=== PATIENT | female | born 1945 | race Caucasian/White ===

== ENCOUNTER → 2022-02-24 09:18 | Outpatient (BNVA) | payer MEDICARE, OTHER, SELFPAY | PROVIDERS: Family Provider Nurse Practitioner; Visit Provider Podiatrist Foot & Ankle Surgery | DX: L84 Corns and callosities (principal) | CPT/HCPCS: 99203 ==

== ENCOUNTER → 2022-04-07 08:58 | Outpatient (BNVA) | payer MEDICARE, OTHER, SELFPAY | PROVIDERS: Family Provider Nurse Practitioner; Visit Provider Podiatrist Foot & Ankle Surgery | DX: M79.671 Pain in right foot (principal); L84 Corns and callosities | CPT/HCPCS: 99213 ==

== ENCOUNTER → 2022-05-26 10:04 | Outpatient (BNVA) | payer MEDICARE, OTHER, SELFPAY | PROVIDERS: Family Provider Nurse Practitioner; Visit Provider Podiatrist Foot & Ankle Surgery | DX: M79.671 Pain in right foot (principal); L84 Corns and callosities | CPT/HCPCS: 99213 ==

== ENCOUNTER 2024-02-21 21:23 | Observation (INO) | payer MEDICARE, OTHER, SELFPAY ==
[2024-02-21 21:24] VITALS: BP 205/85; PULSE 90; RESP 16; TEMP 36.7; O2SAT 97; BMI 29.7
[2024-02-21 21:36] VITALS: BP 217/75
--- NOTE | 2024-02-21 21:36 | CTR_ITS ---
PROCEDURE INFORMATION: Exam: CT Head Without Contrast Exam date and time: 02/21/2024 9:40 PM Age: 79 years old Clinical indication: Altered mental status/memory loss and speech disturbance and visual disturbance; Additional info: Possible stroke TECHNIQUE: Imaging protocol: Computed tomography of the head without contrast. Radiation optimization: All CT scans at this facility use at least one of these dose optimization techniques: automated exposure control; mA and/or kV adjustment per patient size (includes targeted exams where dose is matched to clinical indication); or iterative reconstruction. COMPARISON: No relevant prior studies available. RADIATION DOSE METRICS: Total DLP (mGy-cm): 1038.14 FINDINGS: Brain: Normal. No hemorrhage. Unremarkable white matter. No mass effect. Cerebral ventricles: No ventriculomegaly. Paranasal sinuses: Visualized sinuses are unremarkable. No fluid levels. Mastoid air cells: Visualized mastoid air cells are well aerated. Bones: Unremarkable. No acute fracture. Soft tissues: Unremarkable. CT/CT head wo con* [id number] IMPRESSION: No acute intracranial abnormality.
--- NOTE | 2024-02-21 21:37 | ECG_ITS ---
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 Measurements Intervals [place] Rate: 77 P: 77 PA: 178 QRS: -63 QRSD: 94 T: 77 QT: 375 QTc: 425 Interpretive Statements SINUS RHYTHM LEFT AXIS DEVIATION [QRS AXIS < -30] PATTERN CONSISTENT WITH PULMONARY DISEASE INCOMPLETE RIGHT BUNDLE BRANCH BLOCK [90+ ms QRS DURATION, TERMINAL R IN V1/V2, 40+ ms S IN I/aVL/V4/V5/V6] SEPTAL MYOCARDIAL INFARCTION , OF INDETERMINATE AGE [40+ ms Q WAVE IN V1/V2] No previous ECG available for comparison Electronically Signed On 02-22-2024 16:57:43 RO[address] BUILDER by Armida Platt M.D. [email or web address]
--- NOTE | 2024-02-21 21:37 | CTR_ITS ---
PROCEDURE INFORMATION: Exam: CTA Head With Contrast, Arteriography Exam date and time: 02/21/2024 9:46 PM Age: 79 years old Clinical indication: Speech disturbance and visual disturbance; Additional info: Possible stroke TECHNIQUE: Imaging protocol: Computed tomographic angiography of the head with contrast. Exam focused on the arteries. 3D rendering (Not supervised by radiologist): MIP and/or 3D reconstructed images were created by the technologist. Radiation optimization: All CT scans at this facility use at least one of these dose optimization techniques: automated exposure control; mA and/or kV adjustment per patient size (includes targeted exams where dose is matched to clinical indication); or iterative reconstruction. Contrast material: OMNI 350; Contrast volume: 100 ml; Contrast route: INTRAVENOUS (IV); COMPARISON: CT head wo con* [id number] 02/21/2024 9:40 PM RADIATION DOSE METRICS: Total DLP (mGy-cm): 467.38 FINDINGS: Grossly limited examination due to artifact. The proximal ychsgi-ps-Axymrg is grossly intact. There is nodular contour of the more distal branches of the edfivl-tr-Phcksc which may be due to artifact from suboptimal bolus timing. ANTERIOR CIRCULATION: Right internal carotid artery: Grossly limited examination due to artifact. However it is grossly patent. Right middle cerebral artery: Grossly limited examination due to artifact. However it is grossly patent. Right anterior cerebral artery: Grossly limited examination due to artifact. However it is grossly patent. Left internal carotid artery: Grossly limited examination due to artifact. However it is grossly patent. Left middle cerebral artery: Grossly limited examination due to artifact. However it is grossly patent. Left anterior cerebral artery: Grossly limited examination due to artifact. However it is grossly patent. POSTERIOR CIRCULATION: Right vertebral artery: No occlusion or significant stenosis. No aneurysm. Left vertebral artery: No occlusion or significant stenosis. No aneurysm. Basilar artery: No occlusion or significant stenosis. No aneurysm. Right posterior cerebral artery: Grossly limited examination due to artifact. Left posterior cerebral artery: Grossly limited examination due to artifact. Please see same-day noncontrast CT head examination. PROCEDURE INFORMATION: Exam: CTA Neck With Contrast Exam date and time: 02/21/2024 9:46 PM Age: 79 years old Clinical indication: Speech disturbance and visual disturbance; Additional info: Possible stroke TECHNIQUE: Imaging protocol: Computed tomographic angiography of the neck with contrast. Exam focused on the cervical segments of the vasculature. 3D rendering (Not supervised by radiologist): MIP and/or 3D reconstructed images were created by the technologist. Radiation optimization: All CT scans at this facility use at least one of these dose optimization techniques: automated exposure control; mA and/or kV adjustment per patient size (includes targeted exams where dose is matched to clinical indication); or iterative reconstruction. Contrast material: OMNI 350; Contrast volume: 100 ml; Contrast route: INTRAVENOUS (IV); COMPARISON: CT head wo con* [id number] 02/21/2024 9:40 PM RADIATION DOSE METRICS: Total DLP (mGy-cm): 467.38 FINDINGS: Right common carotid artery: No stenosis. No dissection or occlusion. Right internal carotid artery: No stenosis of the extracranial segment. No dissection or occlusion. Right external carotid artery: No occlusion or stenosis of the origin. Left common carotid artery: No stenosis. No dissection or occlusion. Left internal carotid artery: No stenosis of the extracranial segment. No dissection or occlusion. Left external carotid artery: No occlusion or stenosis of the origin. Right vertebral artery: No stenosis. No dissection or occlusion. Left vertebral artery: No stenosis. No dissection or occlusion. Soft tissues: Normal. No significant soft tissue swelling. Bones/joints: No acute fracture. CT/CT angio headneck* [id number] IMPRESSION: Grossly limited examination due to suboptimal bolus timing artifact. The uwusso-kk-Rwosmy proximally is patent. Nodular contour of the more distal wffybd-xn-Buoezz branches which may be due to suboptimal bolus timing artifact. A follow-up examination with brain MRI can be better utilized to assess for acute ischemia. IMPRESSION: No stenosis or occlusion. REFERENCES: NASCET CRITERIA. The degree of stenosis in the cervical segment of the internal carotid artery is based on NASCET criteria. Normal is no stenosis. Mild is less than 50% stenosis. Moderate is 50-69% stenosis. Severe is 70% to 99% stenosis. Total occlusion is no detectable patent lumen.
[2024-02-21] MEDS: iohexol 350 mg/mL 500 mL Btl (per mL) IV (21:51)
[2024-02-21 21:54] LABS: Glucose Point of Care 114 mg/dL (70-110)
[2024-02-21 21:58] LABS: Basophils % 0.4 %; Eosinophils # 0.1 10^3/uL (0.0-0.8); Hematocrit 39.2 % (36-47); Lymphocytes # 2.8 10^3/uL (0.8-4.8); Lymphocytes % 39.2 %; Mean Corpuscular HGB Conc 33.2 g/dL (30-55); Mean Corpuscular Hemoglobin 31.2 pg (27-33); Mean Platelet Volume 8.1 fL (7.4-10.4); Monocytes # 0.8 10^3/uL (0.2-0.9); Monocytes % 11.1 %; Neutrophils # 3.36 10^3/uL (1.8-7.7); Nucleated Red Blood Cells % 0 %; Platelet Count 238 10^3/cmm (157-399); Red Blood Count 4.17 10^6/uL (3.85-5.65); Red Cell Distribution Width 12.4 % (12.1-15.1); White Blood Count 7.14 10^3/uL (3.29-11.43)
[2024-02-21 22:03] VITALS: PULSE 75; RESP 17; O2SAT 98
[2024-02-21 22:10] LABS: INR 0.96 (0.8-1.2)
[2024-02-21 22:11] LABS: Partial Thromboplastin Time 30.7 SECONDS (23.9-36.7)
--- NOTE | 2024-02-21 22:15 | ED_ITS ---
HPI - Neuro Symptoms/Deficit 2 General: Chief Complaint: Neuro Symptoms/Deficit Stated Complaint: losing eye sight right side confused Time Seen by Provider: 02/21/24 21:33 History of Present Illness: 79-year-old female who presents emergenc y room with neurologic symptoms. She has a history of hypertension and hyperlipidemia. She states that about an hour prior to arrival she was on her phone and could not see out of her right eye suddenly. She had a headache. Then she was unable to answer questions. She said she was very confused and could not remember anything. Symptoms lasted for probably 30 minutes. They resolved while they were driving here. They had about a 30-minute drive. Currently she has no symptoms. No focal motor deficits. No altered mental status. No slurred speech. No facial droop. She has had no fevers. No chest pain. No abdominal pain. No nausea or vomiting. Related Data Home Medications Medication Instructions Recorded Confirmed atorvastatin 20 mg tablet 20 mg PO DAILY 02/24/22 05/26/22 clobetasol 0.05 % topical cream 1 applic topical DAILY 02/24/22 05/26/22 fluticasone propionate 50 1 spray intranasal BID 02/24/22 05/26/22 mcg/actuation nasal spray,suspension levothyroxine 88 mcg tablet 88 mcg PO DAILY 02/24/22 05/26/22 (Synthroid) losartan 50 mg tablet 50 mg PO DAILY 02/24/22 05/26/22 metronidazole 0.75 % topical cream 1 applic topical DAILY 02/24/22 05/26/22 (MetroCream) omeprazole 20 mg capsule,delayed 20 mg PO DAILY 02/24/22 05/26/22 release valacyclovir 1 gram tablet 1,000 mg PO DAILY 02/24/22 05/26/22 Allergies Allergy/AdvReac Type Severity Reaction Status Date / Time acetaminophen [From Percocet] Allergy ADR-Nausea Verified 05/26/22 10:07 gabapentin Allergy ADR-Nausea Verified 05/26/22 10:07 hydrocodone Allergy ADR-Nausea Verified 05/26/22 10:07 oxycodone [From Percocet] Allergy ADR-Nausea Verified 05/26/22 10:07 tramadol Allergy ADR-Nausea Verified 05/26/22 10:07 zolpidem [From Ambien] Allergy ADR-Halluci Verified 05/26/22 10:07 asif Review of Systems 2 Narrative: Constitutional symptoms: Negative except as documented in HPI. Skin symptoms: Negative except as documented in HPI. Eye symptoms: Negative except as documented in HPI. ENMT symptoms: Negative except as documented in HPI. Respiratory symptoms: Negative except as documented in HPI. Cardiovascular symptoms: Negative except as documented in HPI. Gastrointestinal symptoms: Negative except as documented in HPI. Genitourinary symptoms: Negative except as documented in HPI. Musculoskeletal symptoms: Negative except as documented in HPI. Neurologic symptoms: Negative except as documented in HPI. Psychiatric symptoms: Negative except as documented in HPI. Endocrine symptoms: Negative except as documented in HPI. [facility] ED 2 PFSH: Medical History (Updated 02/21/24 @ 23:10 by Zoe Fuentes MD) GERD (gastroesophageal reflux disease) Hypertension Hypothyroid Corns and callosities Physical Exam 2 Narrative: EXAM NARRATIVE: General: Alert, no acute distress. Skin: Warm, dry. Head: Normocephalic, atraumatic. Neck: Supple, trachea midline. Eye: Extraocular movements are intact. Ears, nose, mouth and throat: mucosa moist. Cardiovascular: Regular, Normal peripheral perfusion. Respiratory: Lungs are clear to auscultation, respirations are non-labored, breath sounds are equal, Symmetrical chest wall expansion. Gastrointestinal: Soft, Nontender, Non distended Musculoskeletal: Normal ROM, no deformity. Neurological: Alert and oriented, No focal neurological deficit observed. Psychiatric: Cooperative, appropriate mood & affect. Course 2 Vital Signs: Vital signs: Vital Signs Temperature 98.1 F 02/21/24 21:24 Pulse Rate 79 02/21/24 22:33 Respiratory Rate 20 H 02/21/24 22:33 Blood Pressure 146/121 02/21/24 22:33 Pulse Oximetry 97 02/21/24 22:33 Oxygen Delivery Me thod Room Air 02/21/24 21:24 MDM - Neuro Symptoms/Deficit Medical Decision Making Medical decision making: Differential diagnosis for patient with focal neurologic deficit(s) includes but not limited to and based on the above HPI, review of systems and physical exam: ischemic stroke, hemorrhagic stroke and embolic stroke secondary to atrial fibrillation), TIA, Romero's palsey, metabolic encephalopathy with previous stroke. Orders placed to evaluate differential diagnosis based on the above differential, HPI and physical exam NIH Stroke Scale/Score (NIHSS) from [employer] on 02/21/2024 All calculations should be rechecked by clinician prior to use RESULT SUMMARY: 0 points NIH Stroke Scale INPUTS: 1A: Level of consciousness ?> 0 = Alert; keenly responsive 1B: Ask month and age ?> 0 = Both questions right 1C: 'Blink eyes' & 'squeeze hands' ?> 0 = Performs both tasks 2: Horizontal extraocular movements ?> 0 = Normal 3: Visual ivory ?> 0 = No visual loss 4: Facial palsy ?> 0 = Normal symmetry 5A: Left arm motor drift ?> 0 = No drift for 10 seconds 5B: Right arm motor drift ?> 0 = No drift for 10 seconds 6A: Left leg motor drift ?> 0 = No drift for 5 seconds 6B: Right leg motor drift ?> 0 = No drift for 5 seconds 7: Limb Ataxia ?> 0 = No ataxia 8: Sensation ?> 0 = Normal; no sensory loss 9: Language/aphasia ?> 0 = Normal; no aphasia 10: Dysarthria ?> 0 = Normal 11: Extinction/inattention ?> 0 = No abnormality Consultation: I spoke to Dr. Pérez who is on-call for neurology. He agrees that TNKase is not needed in this instance. Symptoms have resolved. He recommends aspirin and possibly Plavix except for given her age possibly not. Blood pressure control. Admission overnight with cardiac monitoring and consider an echocardiogram. CT head: No acute intracranial process. no intracranial hemorrhage, no evidence of infarct. no evidence of acute fracture.This was reviewed and interpreted by myself the ER physician. CTA of the head and neck: No obvious stenosis or occlusions are identified. No mass. This was reviewed and interpreted by myself the emergency room physician. I also reviewed the radiology report. Lab Review: Laboratory results were reviewed and interpreted by myself the emergency room physician. No leukocytosis. No anemia. No renal failure. Urinalysis is negative for infection. Coags are normal. I reviewed the patient's medical record. Reexamination: Patient remained stable. No increased work of breathing. No altered mental status. No focal motor deficits. Consultation: I spoke with Dr. Jamison who is on-call for the hospitalist service who agrees to admission Assessment and plan: Transient ischemic attack Hypertensive urgency -I discussed the patient with the hospitalist on-call who is admitting the patient. - Discussed findings and plan with patient. Answered any questions. - All laboratory values were reviewed and interpreted personally by myself, the ER physician - All imaging was reviewed and interpreted personally by myself, the ER physician. - Evaluation and treatment of this problem were appropriate in the emergency setting Lab Data 02/21/24 21:53 02/21/24 21:[address] 02/21/24 21:36 IMPRESSION: No acute intracranial abnormality. Head/Neck CTA 02/21/24 21:37 IMPRESSION: Grossly limited examination due to suboptimal bolus timing artifact. The yqedsp-ul-Biizme proximally is patent. Nodular contour of the more distal uferqk-bx-Myavny branches which may be due to suboptimal bolus timing artifact. A follow-up examination with brain MRI can be better utilized to assess for acute ischemia. IMPRESSION: No stenosis or occlusion. REFERENCES: NASCET CRITERIA. The degree of stenosis in the cervical segment of the internal carotid artery is based on NASCET criteria. Normal is no stenosis. Mild is less than 50% stenosis. Moderate is 50-69% stenosis. Severe is 70% to 99% stenosis. Total occlusion is no detectable patent lumen. Laboratory Results WBC 7.14 10^3/uL (3.29-11.43) 02/21/24 21:53 RBC 4.17 10^6/uL (3.85-5.65) 02/21/24 21:53 Hgb 13.00 g/dL (11.27-16.99) 02/21/24 21:53 Hct 39.2 % (36-47) 02/21/24 21:53 MCV 94.0 fl (85-98) 02/21/24 21:53 MCH 31.2 pg (27-33) 02/21/24 21:53 MCHC 33.2 g/dL (30-55) 02/21/24 21:53 RDW 12.4 % (12.1-15.1) 02/21/24 21:53 Plt Count 238 10^3/cmm (157-399) 02/21/24 21:53 MPV 8.1 fL (7.4-10.4) 02/21/24 21:53 Neut % (Auto) 47.0 % 02/21/24 21:53 Lymph % (Auto) 39.2 % 02/21/24 21:53 Pender % (Auto) 11.1 % 02/21/24 21:53 Eos % (Auto) 2.0 % 02/21/24 21:53 Baso % (Auto) 0.4 % 02/21/24 21:53 Neut # (Auto) 3.36 10^3/uL (1.8-7.7) 02/21/24 21:53 Lymph # (Auto) 2.8 10^3/uL (0.8-4.8) 02/21/24 21:53 Pender # (Auto) 0.8 10^3/uL (0.2-0.9) 02/21/24 21:53 Eos # (Auto) 0.1 10^3/uL (0.0-0.8) 02/21/24 21:53 Baso # (Auto) 0.0 10^3/uL (0.0-0.1) 02/21/24 21:53 Nucleated RBC % (auto) 0 % 02/21/24 21:53 Nucleated RBCs # 0.0 /100WBC 02/21/24 21:53 PT 13.50 SECONDS (12.1-14.9) 02/21/24 21:53 INR 0.96 (0.8-1.2) 02/21/24 21:53 APTT 30.7 SECONDS (23.9-36.7) 02/21/24 21:53 Sodium 136 mmol/L (136-145) 02/21/24 21:53 Potassium 4.2 mmol/L (3.5-5.1) 02/21/24 21:53 Chloride 99 mmol/L (98-107) 02/21/24 21:53 Carbon Dioxide 23 mmol/L (22-29) 02/21/24 21:53 Anion Gap 18.2 (5-19) 02/21/24 21:53 BUN 17 mg/dL (8-23) 02/21/24 21:53 Creatinine 0.9 mg/dL (0.5-0.9) 02/21/24 21:53 GFR Calculation Not Reportable 02/21/24 21:53 Glucose 113 mg/dL (65-115) 02/21/24 21:53 POC Glucose 114 mg/dL (70-110) H 02/21/24 21:43 Calculated Osmolality 284 mOsm/kg (285-295) L 02/21/24 21:53 Lactic Acid 1.1 mmol/L (0.5-2.2) 02/21/24 21:53 Calcium 9.3 mg/dL (8.5-10.5) 02/21/24 21:53 Total Bilirubin 0.4 mg/dL (0.15-1.2) 02/21/24 21:53 AST 28 U/L (0-32) 02/21/24 21:53 ALT 22 U/L (0-33) 02/21/24 21:53 Alkaline Phosphatase 136 U/L (35-105) H 02/21/24 21:53 Total Protein 6.9 g/dL (6.6-8.7) 02/21/24 21:53 Albumin 4.2 g/dL (3.5-5.2) 02/21/24 21:53 Globulin 2.7 g/dL (1.3-4.6) 02/21/24 21:53 Urine Color Yellow (Yellow) 02/21/24 22:28 Urine Appearance Clear (CLEAR) 02/21/24 22:28 Urine pH 5.5 (5-7) 02/21/24 22:28 Ur Specific [place] 1.025 (1.005-1.030) 02/21/24 22:28 Urine Protein Negative (Negative) 02/21/24 22:28 Urine Glucose (UA) Negative (Normal) 02/21/24 22:28 Urine Ketones Negative (Negative) 02/21/24 22:28 Urine Blood Negative (Negative) 02/21/24 22:28 Urine Nitrate Negative (Negative) 02/21/24 22:28 Urine Bilirubin Negative (Negative) 02/21/24 22:28 Urine Urobilinogen 0.2 mg/dL (Negative) 02/21/24 22:28 Ur Leukocyte Esterase Negative (Negative) 02/21/24 22: Urine RBC 0-2 /hpf (0-2) 02/21/24 22:28 Urine WBC 0-5 /hpf (0-5) 02/21/24 22:28 Ur Squamous Epith Cells 0-5 /hpf (0-5) 02/21/24 22:28 Amorphous Sediment Not Reportable 02/21/24 22:28 Urine Bacteria None seen /hpf (NONE) 02/21/24 22:28 Hyaline Casts 0-4 /lpf H 02/21/24 22:28 All radiology interpretation(s) finalized by discharge Discharge Plan Discharge Patient Disposition: Admitted As Inpatient Clinical Impression: TIA (transient ischemic attack), Hypertensive urgency Condition: Stable Coding Level of Care Code ED Business Relationship Manager for Liset Robbins
[2024-02-21 22:16] LABS: Alanine Aminotransferase 22 U/L (0-33); Albumin Level 4.2 g/dL (3.5-5.2); Alkaline Phosphatase 136 U/L (35-105); Anion Gap 18.2 (5-19); Aspartate Amino Transferase 28 U/L (0-32); Blood Urea Nitrogen 17 mg/dL (8-23); Calcium 9.3 mg/dL (8.5-10.5); Carbon Dioxide 23 mmol/L (22-29); Chloride 99 mmol/L (98-107); Globulin 2.7 g/dL (1.3-4.6); Glucose 113 mg/dL (65-115); Osmolality Calculated 284 mOsm/kg (285-295); Potassium 4.2 mmol/L (3.5-5.1); Sodium 136 mmol/L (136-145); Total Bilirubin 0.4 mg/dL (0.15-1.2); Total Protein 6.9 g/dL (6.6-8.7)
[2024-02-21 22:17] LABS: Lactic Sepsis W/Reflex 1.1 mmol/L (0.5-2.2)
[2024-02-21 22:32] LABS: Bilirubin Urine Negative (Negative); Blood Urine Negative (Negative); Glucose Urine UA Negative (Normal); Ketones Urine Negative (Negative); Leukocyte Esterase Urine Negative (Negative); Nitrate Urine Negative (Negative); Protein Urine Negative (Negative); Specific Gravity, Urine 1.025 (1.005-1.030); Urine Appearance Clear (CLEAR); Urine Color Yellow (Yellow); Urobilinogen Urine 0.2 mg/dL (Negative); pH Urine 5.5 (5-7)
[2024-02-21 22:33] VITALS: BP 146/121; PULSE 79; RESP 20; O2SAT 97
[2024-02-21 22:37] LABS: Bacteria Urine None Seen /hpf; Hyaline Casts Urine 0-4 /lpf; RBC Urine 0-2 /hpf (0-2); Squamous Epithelial Cell Urine 0-5 /hpf (0-5); WBC Urine 0-5 /hpf (0-5)
--- NOTE | 2024-02-21 22:59 | P.HP_ITS ---
Providers/Chief Complaint 2 Chief Complaint: losing eye sight right side confused History of Present Illness Iveth Petersen is a 79 year old female with history of hypertension, hypothyroidism, presented with chief complaint of vision change. Patient is stating that around 6 PM she was standing in front of the fireplace looking at her phone suddenly she started noticing that she was not able to see right side of her peripheral vision, she was not able to see lights of her phone, she started experiencing memory impairment, was not able to recall events from the past, convinced her to come to the ER for further evaluation, on her way to the hospital has been Questioning her in the car, as per the patient her memory gradually got better by the time she came to the ER. NIH score was 0 code stroke was alerted. She was deemed not a tPA/thrombolytic candidate. NIH 0 at the time of evaluation no active right-sided visual visual defect. No active focal deficit. Patient is stating that her blood pressure was high and she experienced headache like migraine with initiation of her symptoms.She never had any history of PA, CHF, stroke, A-fib. She consider herself fairly active for her age. CT head, CTA head and neck unremarkable. Neurology recommended addition of aspirin with statins. Dr. Pérez did not recommend Plavix secondary to her age. Review of Systems 2 Const: Denies: fever(s) Eyes: Denies: change in vision ENMT: Denies: throat pain Card: Denies: chest pain Resp: Denies: dyspnea Neuro: Reports: headache(s) Medications/Allergies Home Medications Medication Instructions Recorded Confirmed Last Taken Type atorvastatin 20 mg tablet 20 mg PO DAILY 02/24/22 05/26/22 Unknown History clobetasol 0.05 % topical cream 1 applic topical DAILY 02/24/22 05/26/22 Unknown History fluticasone propionate 50 1 spray intranasal BID 02/24/22 05/26/22 Unknown History mcg/actuation nasal spray,suspension levothyroxine 88 mcg tablet 88 mcg PO DAILY 02/24/22 05/26/22 Unknown History (Synthroid) losartan 50 mg tablet 50 mg PO DAILY 02/24/22 05/26/22 Unknown History metronidazole 0.75 % topical cream 1 applic topical DAILY 02/24/22 05/26/22 Unknown History (MetroCream) omeprazole 20 mg capsule,delayed 20 mg PO DAILY 02/24/22 05/26/22 Unknown History release valacyclovir 1 gram tablet 1,000 mg PO DAILY 02/24/22 05/26/22 Unknown History Allergies Allergy/AdvReac Type Severity Reaction Status Date / Time acetaminophen [From Percocet] Allergy ADR-Nausea Verified 05/26/22 10:07 gabapentin Allergy ADR-Nausea Verified 05/26/22 10:07 hydrocodone Allergy ADR-Nausea Verified 05/26/22 10:07 oxycodone [From Percocet] Allergy ADR-Nausea Verified 05/26/22 10:07 tramadol Allergy ADR-Nausea Verified 05/26/22 10:07 zolpidem [From Ambien] Allergy ADR-Halluci Verified 05/26/22 10:07 nating PFSH Acute 2 PFSH: Medical History GERD (gastroesophageal reflux disease) Hypertension Hypothyroid Corns and callosities Vitals/I&O/Wt Last Vital Signs Temp 98.1 F 02/21/24 21:24 Pulse 79 02/21/24 22:33 Resp 20 H 02/21/24 22:33 BP 146/121 02/21/24 22:33 Pulse Ox 97 02/21/24 22:33 O2 Del Method Room Air 02/21/24 21:24 02/21/24 02/21/24 02/21/24 06:59 14:59 22:59 Intake Total 0 / 0 Balance 0 / 0 Weight last 48 hrs Weight 81.193 kg Physical Exam 2 Narrative: NIH 0 Nonfocal neurodeficit GCS 15 Pleasant and cooperative Pupils are equal and symmetrical to light Nonfocal exam Euvolemic Pleasant and cooperative S1, S2 Currently on room air Normotensive at the time of my evaluation Abdomen soft Able to recall events from the past No confusion or hallucination Data 02/21/24 21:53 02/21/24 21:53 A&P Assessment and plan (1) Hypertensive urgency: (2) TIA (transient ischemic attack): Plan TIA Complex migraine? CT head, CT head and neck unremarkable No previous history of cardiac or cardiovascular event Start aspirin and pravastatin 40 mg Request head MRI in the morning Appreciate neurorecommendations Not a candidate of TNKase Echo with bubble study Check TSH, hemoglobin A1c and B12 levels PT OT ST I am anticipating patient will be able to go home by tomorrow if her head MRI is unremarkable Full code Cardiac diet Permissive hypertension: At home patient takes losartan for history of hypertension DVT prophylaxis: Lovenox Attestations 2 Medical Necessity Statement*: Anticipating discharge within 48 hours Diagnoses Hypertensive urgency I16.0 TIA (transient ischemic attack) G45.9
--- NOTE | 2024-02-21 23:36 | PC.NURSE ---
Report given to Radha ORTA on MS; all questions and concerns were addressed at time of report.
[2024-02-22] VITALS (7 sets, daily range): BP systolic 124–164; BP diastolic 66–78; PULSE 64–80; RESP 16–20; TEMP 36.4–36.8; O2SAT 92–97; BMI 29.7
--- NOTE | 2024-02-22 00:05 | USCV_ITS ---
Iveth Petersen Age: 79 Gender: F : 1945 Exam Date: 02/22/2024 00:57 Ordering Phys: Gretchen Jamison MD Technologist: MARK Exam Location: [facility] [place] Indication: TIA, RIGHT EYE VISUAL DISTURBANCE, confusion, hx HTN, HL BP: 205 / 85 HR: 67 Rhythm: Sinus Technical Quality: Adequate MEASUREMENTS (Male / Female) Normal Values 2D ECHO LV Diastolic Diameter PLAX 4.0 cm 4.2 - 5.9 / 3.9 - 5.3 cm IVS Diastolic Thickness 1.1 cm 0.6 - 1.0 / 0.6 - 0.9 cm IVS Systolic Thickness 1.5 cm LVPW Diastolic Thickness 1.2 cm 0.6 - 1.0 / 0.6 - 0.9 cm LVPW Systolic Thickness 2.0 cm LVOT Diameter 1.6 cm LV Ejection Fraction 2D Teich 63.1 % LV Ejection Fraction MOD 4C 57.6 % LV Ejection Fraction MOD 2C 62.9 % LV Ejection Fraction 2C AL 63.0 % LA Diameter 2.6 cm Aorta at Sinotubular Diameter 3.1 cm IVC Diameter 1.5 cm M-MODE LA Ao Ratio MM 0.8 AV Cusp Separation MM 1.5 cm DOPPLER AV Peak Velocity 145.0 cm/s LVOT Peak Velocity 108.0 cm/s AV Area Cont Eq vti 1.6 cm squared AV Area Cont Eq pk 1.4 cm squared MV Peak Velocity 107.0 cm/s MV Area PHT 2.8 cm squared Mitral E to A Ratio 0.7 TV Peak E Velocity 59.0 cm/s PV Peak Velocity 108.0 cm/s FINDINGS Left Ventricle Normal left ventricular size and systolic function, EF 63%.. Mild left ventricular hypertrophy. No regional wall motion abnormalities. Right Ventricle Normal right ventricular size and systolic function. Right Atrium Normal right atrial size. Left Atrium The left atrium is normal in size. Mitral Valve No gross abnormalities noted Aortic Valve Thickened aortic valve. Mild aortic valve regurgitation. Tricuspid Valve No gross abnormalities noted . Pulmonic Valve Pulmonic valve not well visualized. Pericardium Normal pericardium without effusion. Aorta Normal ascending aorta dimension. IVC Normal inferior vena cava. CONCLUSIONS Normal left ventricular size and systolic function, EF 63%.. Mild left ventricular hypertrophy. No regional wall motion abnormalities. Thickened aortic valve. Mild aortic valve regurgitation. Normal cardiac chamber sizes. There are no intracardiac masses. There are no intracardiac masses. No similar previous studies are available for comparison Dr Armida Platt MD FAC (Electronically Signed) Final Date: 22 February 2024 08:45 S
[2024-02-22 05:20] LABS: Estmated Average Glucose 114; Hemoglobin A1C 5.6 % (4.0-6.0)
[2024-02-22] MEDS: levothyroxine 88 mcg Tablet PO (05:25)
[2024-02-22] MEDS: acetaminophen 500 mg Tablet 1000 MG PO (05:26)
[2024-02-22] MEDS: enoxaparin 40 mg/0.4 mL Syringe SUBCUT (05:26)
[2024-02-22 05:46] LABS: Thyroid Stimulating Hormone 1.08 uIU/mL (0.27-4.20)
[2024-02-22 06:04] LABS: Vitamin B12 > 2000 pg/mL (232-1245)
--- NOTE | 2024-02-22 07:00 | MR_ITS ---
WS: [id number] MRI BRAIN WITHOUT CONTRAST HISTORY: TIA COMPARISON: None available. TECHNIQUE: Diffusion imaging, multiplanar T1, T2 and FLAIR imaging obtained. No evidence for acute infarct or hemorrhage. Lopez-white matter differentiation is normal. Mild atrophy. Numerous scattered T2 and FLAIR signal hyperintensities in the subcortical and perivent ricular white matter from small vessel disease. No hemorrhage. Ventricles and extra-axial spaces are normal. No inferior displacement of cerebellar tonsils. The sella turcica and pituitary gland are unremarkabl e. Dural venous sinuses and [place] demonstrate no abnormality on this unenhanced studies. Paranasal sinuses: Clear. Mastoid air cells: Normal. Calvarium and scalp: Hyperostosis frontalis interna. MR/MR head wo con* [id number] IMPRESSION: 1. No acute infarct. Normal diffusion imaging. 2. Mild cerebral and cerebellar atrophy with moderate small vessel ischemic ch anges which are chronic.
--- NOTE | 2024-02-22 12:10 | PC.OT ---
patient is gone for MRI,SPOUSE in room ,stated that loretta will go home after MRI.
--- NOTE | 2024-02-22 12:29 | PC.OT ---
ot eval held due to unavailabilty of patient. gone to MRI
--- NOTE | 2024-02-22 13:56 | PM.DCS ---
Discharge Providers Date of Admission: 02/21/24 23:30 Date of Discharge: February 22, 2024 Attending Provider at Admission: Gretchen Jamison MD Attending Provider at Discharge: Isidro Healy MD Diagnoses at Discharge Discharge Diagnosis (1) Hypertensive urgency: Status: Acute (2) TIA (transient ischemic attack): Status: Acute Reason for Visit Reason for Visit: losing eye sight right side confused Hospital Course Hospital Course This is a 79-year-old female with a past medical history of hypertension, hypothyroidism, who presents [facility] due to word finding difficulty, confusion, vision change Patient was admitted to [facility] for concerns for TIA -CT head no acute findings -CTA head and neck no acute findings -MRI brain no acute findings -Cardiac echo no acute findings -No acute telemetry events -She was managed on aspirin, statin, inpatient monitoring, PT OT, speech therapy eval -Patient's word finding difficulty has resolved -She does have a slight left facial droop -No significant slurring of words -Cranial nerves II to XII grossly intact, no focal weakness -Patient will be discharged on aspirin, statin with close follow-up with neurology as outpatient -If she were to have any recurrent strokelike symptoms to immediately call [phone] -Discharged with event monitor in place -Advised to keep a blood pressure log, follow-up with primary care provider and neurology as outpatient -Somewhat symptomatology could be migraine related, follow-up with neurology Physical Exam Const: COMMON NORMALS: no acute distress and patient oriented x3 Resp: COMMON NORMALS: normal respiratory effort, No retractions, No use of accessory muscles and clear to auscultation bilaterally AUSCULTATION: clear to auscultation bilaterally Cardio: COMMON NORMALS: regular rate, regular rhythm, S1 normal heart sound present and S2 normal heart sound present RATE: regular rate RHYTHM: regular rhythm HEART SOUNDS: S1 normal heart sound present and S2 normal heart sound present GI: COMMON NORMALS: Normal to inspection, nondistended, normoactive bowel sounds present and non-tender Extremity: COMMON NORMALS: no pedal edema Neuro: COMMON NORMALS: patient oriented x3, CN's II-XII intact bilaterally, moves all extremities, no focal motor deficits and no sensory deficits noted Psych: COMMON NORMALS: mental status grossly normal Discharge Data Studies Completed and Pending Completed Studies During Hospitalization Category Date Time Status CT head wo con* [id number] Stat Cat Scan 02/21/24 21:36 Completed CTA head neck [CT angio headneck* [id number]] Stat Cat Scan 02/21/24 21:37 Completed MR head wo con* [id number] Routine MRI 02/22/24 07:00 Completed CV. echo w/w bubble cont [id number] Routine Ultrasound 02/22/24 00:05 Completed Pending at discharge Category Date Time Status ALEJANDRA Screen w/ Reflex Routine Lab 02/22/24 03:59 Received Radiology Impressions Head CT 02/21/24 21:36 IMPRESSION: No acute intracranial abnormality. Head/Neck CTA 02/21/24 21:37 IMPRESSION: Grossly limited examination due to suboptimal bolus timing artifact. The cxfyxp-[id number] proximally is patent. Nodular contour of the more distal ppzorl-mi-Qzvdaj branches which may be due to suboptimal bolus timing artifact. A follow-up examination with brain MRI can be better utilized to assess for acute ischemia. IMPRESSION: No stenosis or occlusion. REFERENCES: NASCET CRITERIA. The degree of stenosis in the cervical segment of the internal carotid artery is based on NASCET criteria. Normal is no stenosis. Mild is less than 50% stenosis. Moderate is 50-69% stenosis. Severe is 70% to 99% stenosis. Total occlusion is no detectable patent lumen. Head MRI 02/22/24 07:00 IMPRESSION: 1. No acute infarct. Normal diffusion imaging. 2. Mild cerebral and cerebellar atrophy with moderate small vessel ischemic changes which are chronic. Laboratory Results WBC 7.14 10^3/uL (3.29-11.43) 02/21/24 21:53 RBC 4.17 10^6/uL (3.85-5.65) 02/21/24 21:53 Hgb 13.00 g/dL (11.27-16.99) 02/21/24 21:53 Hct 39.2 % (36-47) 02/21/24 21:53 MCV 94.0 fl (85-98) 02/21/24 21:53 MCH 31.2 pg (27-33) 02/21/24 21:53 MCHC 33.2 g/dL (30-55) 02/21/24 21:53 RDW 12.4 % (12.1-15.1) 02/21/24 21:53 Plt Count 238 10^3/cmm (157-399) 02/21/24 21:53 MPV 8.1 fL (7.4-10.4) 02/21/24 21:53 Neut % (Auto) 47.0 % 02/21/24 21:53 Lymph % (Auto) 39.2 % 02/21/24 21:53 [place] % (Auto) 11.1 % 02/21/24 21:53 Eos % (Auto) 2.0 % 02/21/24 21:53 Baso % (Auto) 0.4 % 02/21/24 21:53 Neut # (Auto) 3.36 10^3/uL (1.8-7.7) 02/21/24 21:53 Lymph # (Auto) 2.8 10^3/uL (0.8-4.8) 02/21/24 21:53 [place] # (Auto) 0.8 10^3/uL (0.2-0.9) 02/21/24 21:53 Eos # (Auto) 0.1 10^3/uL (0.0-0.8) 02/21/24 21:53 Baso # (Auto) 0.0 10^3/uL (0.0-0.1) 02/21/24 21:53 Nucleated RBC % (auto) 0 % 02/21/24 21:53 Nucleated RBCs # 0.0 /100WBC 02/21/24 21:53 PT 13.50 SECONDS (12.1-14.9) 02/21/24 21:53 INR 0.96 (0.8-1.2) 02/21/24 21:53 APTT 30.7 SECONDS (23.9-36.7) 02/21/24 21:53 Sodium 136 mmol/L (136-145) 02/21/24 21:53 Potassium 4.2 mmol/L (3.5-5.1) 02/21/24 21:53 Chloride 99 mmol/L (98-107) 02/21/24 21:53 Carbon Dioxide 23 mmol/L (22-29) 02/21/24 21:53 Anion Gap 18.2 (5-19) 02/21/24 21:53 BUN 17 mg/dL (8-23) 02/21/24 21:53 Creatinine 0.9 mg/dL (0.5-0.9) 02/21/24 21:53 GFR Calculation Not Reportable 02/21/24 21:53 Glucose 113 mg/dL (65-115) 02/21/24 21:53 POC Glucose 114 mg/dL (70-110) H 02/21/24 21:43 Estimat Average Glucose 114 02/22/24 03:59 Hemoglobin A1c 5.6 % (4.0-6.0) 02/22/24 03:59 Calculated Osmolality 284 mOsm/kg (285-295) L 02/21/24 21:53 Lactic Acid 1.1 mmol/L (0.5-2.2) 02/21/24 21:53 Calcium 9.3 mg/dL (8.5-10.5) 02/21/24 21:53 Magnesium 2.0 mg/dL (1.7-2.3) 02/22/24 03:59 Total Bilirubin 0.4 mg/dL (0.15-1.2) 02/21/24 21:53 AST 28 U/L (0-32) 02/21/24 21:53 ALT 22 U/L (0-33) 02/21/24 21:53 Alkaline Phosphatase 136 U/L (35-105) H 02/21/24 21:53 Total Protein 6.9 g/dL (6.6-8.7) 02/21/24 21:53 Albumin 4.2 g/dL (3.5-5.2) 02/21/24 21:53 Globulin 2.7 g/dL (1.3-4.6) 02/21/24 21:53 Vitamin B12 > 2000 pg/mL (232-1245) H 02/22/24 03:59 TSH 1.08 uIU/mL (0.27-4.20) 02/22/24 03:59 Urine Color Yellow (Yellow) 02/21/24 22:28 Urine Appearance Clear (CLEAR) 02/21/24 22:28 Urine pH 5.5 (5-7) 02/21/24 22:28 Ur Specific [place] 1.025 (1.005-1.030) 02/21/24 22:28 Urine Protein Negative (Negative) 02/21/24 22:28 Urine Glucose (UA) Negative (Normal) 02/21/24 22:28 Urine Ketones Negative (Negative) 02/21/24 22:28 Urine Blood Negative (Negative) 02/21/24 22: Urine Nitrate Negative (Negative) 02/21/24 22:28 Urine Bilirubin Negative (Negative) 02/21/24 22:28 Urine Urobilinogen 0.2 mg/dL (Negative) 02/21/24 22:28 Ur Leukocyte Esterase Negative (Negative) 02/21/24 22:28 Urine RBC 0-2 /hpf (0-2) 02/21/24 22:28 Urine WBC 0-5 /hpf (0-5) 02/21/24 22:28 Ur Squamous Epith Cells 0-5 /hpf (0-5) 02/21/24 22: Amorphous Sediment Not Reportable 02/21/24 22: Urine Bacteria None seen /hpf (NONE) 02/21/24 22: Hyaline Casts 0-4 /lpf H 02/21/24 22:28 Vitals Last Vital Signs Temp 98.1 F 02/22/24 11:00 Pulse 68 02/22/24 11:04 Resp 17 02/22/24 11:04 BP 145/74 02/22/24 11:00 Pulse Ox 92 02/22/24 11:04 O2 Del Method Room Air 02/22/24 11:04 Discharge Plan Discharge Patient Disposition: Home Condition: Stable Prescriptions: New aspirin 81 mg Tablet,Delayed Release (Dr/Ec) 81 mg PO DAILY 30 Days Qty: 30 0RF atorvastatin 40 mg Tablet 40 mg PO BEDTIME 30 Days Qty: 30 0RF clonidine HCl 0.1 mg tablet 0.1 mg PO BID PRN (Reason: hypertensive emergency) 30 Days Qty: 60 0RF Rx Instructions: Take if systolic blood pressure greater than 180 or diastolic blood pressure greater than 100 Continued omeprazole 20 mg capsule,delayed release(DR/EC) 20 mg PO DAILY levothyroxine [Synthroid] 88 mcg tablet 88 mcg PO QAM olmesartan 20 mg tablet 20 mg PO DAILY Discontinued atorvastatin 20 mg tablet 20 mg PO DAILY Discharge Orders: Discharge Order (Routine); Ordered 02/22/24 Ordered By: Isidro Healy Other Ambulatory Orders: MCT/Event Monitor 30 Days (Routine) Timeframe: 1 Day Facility: [facility] - Location: Radiology Ordered By: Isidro Healy Referrals: Elana Neri MD [Physician] - 2 weeks Gretchen Green MD [Physician] - 1 month Discharge Diet: Cardiac Discharge Activity: Resume usual activity Patient Instructions: Opioid Safety Activity Restrictions/Additional Instructions: - stroke -If you have any recurrent strokelike symptoms immediately call 911 -Take aspirin 81 mg daily -Take atorvastatin 40 mg daily -Please follow-up with neurology in 1 week -Please check your blood pressures twice daily -Record your blood pressures and a blood pressure log -I am going to send in clonidine 0.1 mg twice daily to only be used for emergency hypertension, if your systolic blood pressures greater than 180 or diastolic is greater than 100 then use clonidine -Please follow-up with cardiology in a month to follow-up your event monitor -If you have any chest pain or palpitations go to emergency room Discharge Attestations Time Spent in Discharge Care*: greater than 30 min Quality Metrics Clinical Quality Measures [ Cerebrovascular Accident { Contraindication to Antithrombotic: None; antithrombotic prescribed; Contraindication to Anticoagulation: Overlap treatment not indicated; Contraindication to Statin: None; Statin prescribed;}. No reported AMI, CVA or VTE this stay] Coding Level of Care Code 85164 Total time (in minutes) for Discharge: 45 Diagnoses Hypertensive urgency I16.0 TIA (transient ischemic attack) G45.9
--- NOTE | 2024-02-22 15:00 | PC.NURSE ---
Patient is A&Ox3. Respirations even and non-labored on room air. IV removed intact and patient tolerated well. Discharge plan discussed with patient and . Patient verbalized understanding of the new medications. Aspirin daily, increased in Atorvastatin and then Clonidine 0.1 for a top blood pressure of 180 or a bottom blood pressure of over 100. Patient verbalized the understanding also of follow up appointments and the need to were an event monitor. Michelle bryson chaired to private car.
[2024-02-26 12:40] LABS: Anti-Nuclear AB Pattern #2 Nuclear, Homogeneous; Anti-Nuclear Antibody Pattern Nuclear, Speckled; Anti-Nuclear Antibody Screen POSITIVE (NEGATIVE)
== END 2024-02-22 14:45 | disposition home or self-care (01) ==
LOC: ER 23:10 → MEDSURG 23:30
PROVIDERS: Admitting Provider Internal Medicine; Emergency Provider Emergency Medicine; Visit Provider Family Medicine
DX: G45.9 Transient cerebral ischemic attack, unspecified (principal); R29.700 NIHSS score 0; I16.0 Hypertensive urgency; I10 Essential (primary) hypertension; E03.9 Hypothyroidism, unspecified; K21.9 Gastro-esophageal reflux disease without esophagitis
CPT/HCPCS: 36415; 36416; 70450; 70496; 70498; 70551; 80053; 81001; 82607; 82962; 83036; 83605; 83735; 84443; 85025; 85610; 85730; 86038; 92523; 92610; 93005; 96372; 97161; 99285; C8929; G0378; J1650

== ENCOUNTER → 2024-03-07 10:56 | Outpatient (BNVA) | payer MEDICARE, OTHER, SELFPAY | PROVIDERS: Referring Provider Family Medicine; Visit Provider Specialist | DX: G31.84 Mild cognitive impairment of uncertain or unknown etiology (principal); G45.0 Vertebro-basilar artery syndrome; G43.109 Migraine with aura, not intractable, without status migrainosus; G37.9 Demyelinating disease of central nervous system, unspecified | CPT/HCPCS: 36415; 82542; 83520; 99205 ==

== ENCOUNTER 2024-03-14 08:32 | Outpatient (CLI) | payer MEDICARE, OTHER, SELFPAY ==
--- NOTE | 2024-03-14 09:15 | MR_ITS ---
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 COMPARISON: None available. TECHNIQUE: MRA is performed with intravenous gadolinium. MIP and source images are reviewed. Right: RIGHT cervical, internal and external carotid arteries are patent. No significant stenosis or plaque identified. Left: LEFT cervical common and internal/external carotid arteries are patent. No significant stenosis or plaque. Subclavian Arteries: Normal. Vertebral Arteries: Codominant, normal. MR/MR angio neck w con* [id number] IMPRESSION: No significant carotid artery stenosis or atherosclerotic disease. Normal patent vertebral arteries.
[2024-03-14] MEDS: gadobenate dimeglumine 20 mL vial IV (09:40)
--- NOTE | 2024-03-14 10:00 | MR_ITS ---
WS: [id number] MRA ANGIOGRAPHY [place] HISTORY: G31.84 - Mild cognitive impairment of uncertain or unknow... COMPARISON: 02/21/2024 TECHNIQUE: 3-D MR angiography is performed of the [place]. All images are reviewed including source images. Distal vertebral and basilar arteries are intact with no significant stenosis or plaque. Posterior ce rebral arteries are normal course and caliber. Posterior communicating arteries are both patent. Mild atherosclerotic plaque in the cavernous carotid arteries. No high-grade stenosis. No aneurysm. M iddle and anterior cerebral arteries are normal caliber. No paucity of vessels distally. Anterior com municating artery is normal. No aneurysm. MR/MR angio head wo con [id number] IMPRESSION: 1. No occlusions within the [place]. 2. No high-grade stenosis within the [place] or aneurysm.
== END 2024-03-14 08:33 | disposition home or self-care (01) ==
PROVIDERS: PCP Internal Medicine; Visit Provider Specialist
DX: G31.84 Mild cognitive impairment of uncertain or unknown etiology (principal); G45.0 Vertebro-basilar artery syndrome; R93.0 Abnormal findings on diagnostic imaging of skull and head, not elsewhere classified
CPT/HCPCS: 70544; 70548

== ENCOUNTER → 2024-04-23 13:07 | Outpatient (BNVA) | payer MEDICARE, OTHER, SELFPAY | PROVIDERS: PCP Internal Medicine; Visit Provider Internal Medicine Cardiovascular Disease | DX: I08.0 Rheumatic disorders of both mitral and aortic valves (principal); G45.0 Vertebro-basilar artery syndrome | CPT/HCPCS: 99213 ==

== ENCOUNTER → 2024-07-08 09:31 | Outpatient (BNVA) | payer MEDICARE, OTHER, SELFPAY | PROVIDERS: PCP Internal Medicine; Visit Provider Specialist | DX: G45.0 Vertebro-basilar artery syndrome (principal); G43.109 Migraine with aura, not intractable, without status migrainosus; G31.84 Mild cognitive impairment of uncertain or unknown etiology; G37.9 Demyelinating disease of central nervous system, unspecified | CPT/HCPCS: 99214 ==

== ENCOUNTER 2024-09-24 06:00 | Outpatient (RCR) | payer MEDICARE, OTHER, SELFPAY | END 2024-10-12 23:59 | disposition home or self-care (01) | LOC: TPT 06:00 | PROVIDERS: Visit Provider Physical Medicine & Rehabilitation | DX: M54.50 Low back pain, unspecified (principal); M25.551 Pain in right hip; M25.552 Pain in left hip | CPT/HCPCS: 97110; 97140; 97161 ==

== ENCOUNTER 2024-10-13 06:30 | Outpatient (RCR) | payer MEDICARE, OTHER, SELFPAY | END 2024-10-24 14:17 | disposition home or self-care (01) | LOC: TPT 06:30 | PROVIDERS: Visit Provider Physical Medicine & Rehabilitation | DX: M54.50 Low back pain, unspecified (principal); M25.551 Pain in right hip; M25.552 Pain in left hip | CPT/HCPCS: 97110; 97140 ==